=== PATIENT | male | born 1970 | race Caucasian/White ===

== ENCOUNTER 2021-04-02 16:48 | Emergency (ER) | payer OTHER ==
[~2021-04-02] VITALS: Ht 182.9 cm; Wt 89.6 kg
[~2021-04-02 16:48] MED LIST: INDERAL LA60 MG PO
[2021-04-02] MEDS ORDERED: AMANTADINE100 M1 PO (17:41)
[2021-04-02] MEDS ORDERED: PYRIDOXINE HCL50 MG PO (17:41)
[2021-04-02] MEDS ORDERED: SERTRALINE HCL100 MG PO (17:42)
== END 2021-04-02 20:56 | disposition home or self-care (01) ==
LOC: ED 16:48
DX: R25.1 Tremor, unspecified (principal); K52.9 Noninfective gastroenteritis and colitis, unspecified; D72.829 Elevated white blood cell count, unspecified; R00.0 Tachycardia, unspecified; Z79.899 Other long term (current) drug therapy
CPT/HCPCS: 80053; 81001; 83690; 84443; 85025; 96374; 99284-25; J2405; J7030